=== PATIENT | female | born 1970 | race Caucasian/White ===

== ENCOUNTER 2022-11-14 07:37 | Day surgery (SDC) | payer OTHER, SELFPAY ==
[2022-10-25 08:53] VITALS: BMI 26.6
[2022-11-04 08:21] VITALS: BMI 25.9
--- NOTE | 2022-11-14 07:02 | WPDANESEPPF ---
Anes - Initial Pre Proc Eval Procedure: Operation Date: 11/14/22 09:30 Proposed Procedures p Esophagogastroduodenoscopy - Júnior Mar MD s Diagnostic Colonoscopy - Júnior Mar MD Date/Time: 11/14/22 07:02 Surgeon: Júnior Mar MD Pre Op Diagnosis: Nausea,Gerd,Diarrhea,Other Specified Symptoms and Patient Data Age: 52 Gender: F Height: 1.7 m Weight: 75 kg Allergies Allergy/AdvReac Type Severity Reaction Status Date / Time No Known Allergies Allergy Verified 11/14/22 08:14 Home Medications Medication Instructions Recorded Confirmed Type duloxetine 30 mg capsule,delayed 30 mg PO DAILY 08/29/19 11/14/22 History release fingolimod 0.5 mg capsule (Gilenya) 0.5 mg PO DAILY 08/29/19 11/14/22 History solifenacin 5 mg tablet 5 mg PO DAILY 07/23/20 11/14/22 History temazepam 7.5 mg capsule (Restoril) 7.5 mg PO QHS 08/03/21 11/14/22 History omeprazole 20 mg capsule,delayed 20 mg PO .daily #30 caps 11/14/22 11/14/22 Rx release Patient hx anesthesia problems: none Family hx anesthesia problems: none Results Review: All pre-operative results and documents have been reviewed as part of the pre-operative evaluation. [facility] Past Medical History Medical History (Updated 10/20/22 @ 09:24 by Winnie Barrios APRN) Acute diarrhea Depression GERD (gastroesophageal reflux disease) Multiple sclerosis Nausea Tenesmus Weight loss Surgical History Surgical History [place] teeth removed Family History Family History Grandparent Cerebrovascular accident Mother Acute myocardial infarction Father Family history of suicide Alcoholism Grandparent Family history of lung cancer Family history of heart disease in male family member before age 55 Diabetes mellitus Cerebrovascular accident Mother Family history of heart disease in male family member before age 55 Heart disease Other Breast cancer Family history of malignant neoplasm of breast Social History Social History Smoking status: Former smoker Tobacco type: cigarettes Second hand tobacco smoke exposure: No Smoking end date: 03/27/99 Alcohol intake: current Alcohol use details: occassional Substance use: never Substance use type: does not use Lack of Transportation: No Lack of Food: Never True Current Housing: I Have Housing Concerned About Future Housing: No Difficulty Paying Gas/Electric Bills: No Difficulty Paying for Meds: No Currently Unemployed: No Education: Bachelor's Degree Difficulty w/ Childcare or Family Care: No Living arrangements: with family Gender identity (if verbalized by the patient): Female Sexual Orientation (if Verbalized by the Patient): Straight or Heterosexual Spiritual care concerns: No Agree to blood products: Yes Anes - Eval Final PreProcedure Day of Procedure 11/14/22 07:02 Patient weight: overweight Heart: regular rate and rhythm Lungs: clear to auscultation Airway: Mallampati scale class II Neurological: alert and oriented Last oral intake: >/= 8 hours ASA classification: II Emergent: no Anesthetic plan: proceed Anesthesia type and monitoring: general GIVS and standard monitoring Results Review: All pre-operative results and documents have been reviewed as part of the pre-operative evaluation. Informed Consent: The patient's anesthetic plan and its attendant risks and benefits were discussed with the patient/family/POA. Questions were solicited and answers provided to the satisfaction of the patient/family/POA.
[2022-11-14 08:16] VITALS: BP 125/84; PULSE 85; RESP 18; TEMP 36.4; O2SAT 100
[2022-11-14] MEDS: LACTATED RINGERS 1,000 ML 150 ML IV CONT (08:25)
--- NOTE | 2022-11-14 09:41 | WPDHPUPDATE1 ---
History and Physical Update Update Date/Time: 11/14/22 09:41 History and Physical has been reviewed, including an updated exam of the patient. There are NO changes in the patient's condition. Risks, benefits, and alternatives have been discussed and questions answered. Patient agrees to proceed with procedure.
[2022-11-14 10:18] VITALS: BP 110/73; PULSE 70; RESP 16; O2SAT 99
[2022-11-14 10:28] VITALS: BP 115/74; PULSE 77; RESP 20; O2SAT 100
[2022-11-14 10:38] VITALS: BP 117/82; PULSE 63; RESP 20; O2SAT 100
--- NOTE | 2022-11-14 12:35 | WPDANESPN ---
Anes - Prog Note Post-Op Date/Time: 11/14/22 12:35 Cardiovascular status: normal Respiratory status: normal Airway patency: baseline Mental status: baseline Post-Op hydration status: normal Vital Signs: Last Vital Signs Temp 36.4 C 11/14/22 08:16 Pulse 63 11/14/22 10:38 Resp 20 11/14/22 10:38 BP 117/82 11/14/22 10:38 Pulse Ox 100 11/14/22 10:38 O2 Del Method Room Air 11/14/22 10:38 Pain Score (VAS): 0 I/O: Intake & Output 11/13/22 11/14/22 11/14/22 23:59 07:59 15:59 Intake Total 800 Balance 800 Post-procedural complaints: none Patient Feedback: Patient satisfied with anesthetic care. Other Findings: Patient vital signs back to baseline. Patient denies nausea and vomiting. Patient's pain under control. Patient OK for discharge.
== END 2022-11-14 10:57 | disposition home or self-care (01) ==
PROVIDERS: PCP Family Medicine; Visit Provider Internal Medicine Gastroenterology
PROC: 0DJ08ZZ Inspection of Upper Intestinal Tract, Via Natural or Artificial Opening Endoscopic (ICD-10-PCS; CPT 43235; principal; 2022-11-14 09:30)
PROC: 0DJD8ZZ Inspection of Lower Intestinal Tract, Via Natural or Artificial Opening Endoscopic (ICD-10-PCS; CPT 45378; 2022-11-14 09:30)
DX: Z12.11 Encounter for screening for malignant neoplasm of colon (principal); D12.2 Benign neoplasm of ascending colon; D12.3 Benign neoplasm of transverse colon; R19.7 Diarrhea, unspecified; K64.8 Other hemorrhoids; K29.70 Gastritis, unspecified, without bleeding; R07.89 Other chest pain
CPT/HCPCS: 45385; 45380; 43239

== ENCOUNTER 2022-11-14 08:00 | Outpatient (NON) | payer OTHER, SELFPAY | END 2022-11-14 08:01 | disposition home or self-care (01) | LOC: ANHLAB 11-15 10:16 | PROVIDERS: PCP Family Medicine; Visit Provider Internal Medicine Gastroenterology | DX: K21.9 Gastro-esophageal reflux disease without esophagitis (principal) | CPT/HCPCS: 88305 ==

== ENCOUNTER → 2023-01-23 09:56 | Outpatient (CLI) | payer OTHER, SELFPAY ==
--- NOTE | ~2023-01-23 | MR_ITS ---
EXAMINATION: MR brain/brain stem wo con DATE: 01/23/2023 11:06 INDICATION: Multiple sclerosis. TECHNIQUE: Magnetic resonance imaging (MRI) of the brain and brainstem was performed without intraven ous contrast. COMPARISON: Brain MRI 12/10/2007 FINDINGS: There are greater than 40 total lesions of increased T2-weighted signal intensity in the br ain. Of these lesions, multiple are periventricular, multiple are juxtacortical, and multiple are inf ratentorial. There is no acute ischemic infarct or intracranial hemorrhage. The ventricles are normal in size. The orbits are normal. The paranasal sinuses are clear. The mastoid air cells are normal. IMPRESSION: 1. Brain lesions with worsening from 12/10/2007, consistent with multiple sclerosis. Reviewed, dictated and finalized at location E. IMPRESSION: 1. Brain lesions with worsening from 12/10/2007, consistent with multiple sclero sis.
--- NOTE | ~2023-01-23 | MR_ITS ---
EXAMINATION: MR cervical spine wo con DATE: 01/23/2023 11:06 INDICATION: Multiple sclerosis. TECHNIQUE: Magnetic resonance imaging (MRI) of the cervical spine was performed without intravenous c ontrast. COMPARISON: None FINDINGS: There is hypolordosis of lower cervical spine. Vertebral body heights are normal. There is moderately decreased disc height at C5-C6 and mildly decreased disc height at C6-C7. There are approx imately 4 ill-defined lesions of increased T2-weighted signal intensity in the spinal cord. The follo wing disc levels are specifically discussed: C2-C3: The disc does not extend beyond the endplate margin. There is no uncovertebral joint osteoarth ritis. There is mild bilateral facet joint osteoarthritis. There is mild left neural foraminal stenos is. There is no central canal stenosis. C3-C4: The disc does not extend beyond the endplate margin. There is mild left uncovertebral joint os teoarthritis. There is mild bilateral facet joint osteoarthritis. There is no neural foraminal stenos is. There is no central canal stenosis. C4-C5: The disc does not extend beyond the endplate margin. There is mild bilateral uncovertebral philipp nt osteoarthritis. There is mild bilateral facet joint osteoarthritis. There is no neural foraminal s tenosis. There is no central canal stenosis. C5-C6: The disc is bulging. There is severe bilateral uncovertebral joint osteoarthritis. There is mi ld right facet joint osteoarthritis. There is moderate bilateral neural foraminal stenosis. There is mild central canal stenosis. C6-C7: The disc is bulging. There is mild bilateral uncovertebral joint osteoarthritis. There is mild right facet joint osteoarthritis. There is mild bilateral neural foraminal stenosis. There is no joceline tral canal stenosis. C7-T1: The disc does not extend beyond the endplate margin. There is no uncovertebral joint osteoarth ritis. There is moderate right and mild left facet joint osteoarthritis. There is no neural foraminal stenosis. There is no central canal stenosis. IMPRESSION: 1. Spinal cord lesions, consistent with multiple sclerosis. 2. Moderate cervical spondylosis. Reviewed, dictated and finalized at location E.
== END ==
PROVIDERS: PCP Psychiatry & Neurology Neurology; Visit Provider Psychiatry & Neurology Neurology
DX: G35 Multiple sclerosis (principal); M47.892 Other spondylosis, cervical region
CPT/HCPCS: 70551; 72141

== ENCOUNTER 2023-06-30 11:15 | Outpatient (CLI) | payer OTHER, SELFPAY ==
--- NOTE | ~2023-06-30 | US_ITS ---
EXAMINATION: US pelvic complete w TV DATE: 06/30/2023 11:56 INDICATION: Postmenopausal bleeding. TECHNIQUE: Multiple transabdominal and transvaginal sonographic images of the pelvis were obtained. COMPARISON: None. FINDINGS: TRANSABDOMINAL ULTRASOUND: The uterus measures 8.1 x 3.3 x 3.8 cm. There is no free fluid in the pelvis. TRANSVAGINAL ULTRASOUND: The endometrial complex measures 7 mm in thickness. The right ovary is not visualized. The left ovary measures 3.3 x 1.6 x 1.8 cm. IMPRESSION: 1. Thickened endometrial complex. The differential diagnosis includes endometrial hyperplasia, polyp, and carcinoma. Biopsy is recommended. Reviewed, dictated and finalized at location A. IMPRESSION: 1. Thickened endometrial complex. The differential diagnosis includes endometri al hyperplasia, polyp, and carcinoma. Biopsy is recommended.
== END 2023-06-30 11:16 ==
PROVIDERS: Visit Provider Obstetrics & Gynecology
DX: N95.0 Postmenopausal bleeding (principal)
CPT/HCPCS: 76830; 76856

== ENCOUNTER 2023-08-16 01:00 | Day surgery (SDC) | payer OTHER, SELFPAY ==
[2023-08-09 09:35] VITALS: BMI 22.4
--- NOTE | 2023-08-09 09:36 | PC.NURSE ---
Report to the Outpatient Waiting Room, entrance under the green pavilion located off [facility], at time _0915_ on date _[id number]_. Planned Procedure Time: _1115_. Time changes happen often and if your time is changed the preop area will call you the afternoon before. - You and your visitor will be asked to self-screen and do not enter if you have any COVID symptoms. - A mask is optional within the hospital at this time. Patients may have clear liquids (water, carbonated beverages, clear teas, apple juice) until 3 hours prior to surgery with a maximum of 20 ounces. - No food from midnight until time of surgery Take the following medications with a SIP of water the morning of surgery: ___Fingolimod DO NOT STOP ANY OF YOUR OTHER PRESCRIPTION MEDICATIONS PRIOR TO SURGERY ?EXCEPT THE FOLLOWING Medications to discontinue per physician Multivitamin and vitamin D3 Date to take last [id number]__[id number] Please no make-up, nail swedish, hairspray, perfume, deodorant, or body powder the day of surgery. No jewelry (including any body piercings) or valuables the day of surgery, leave them at home. Please take a shower or bath the night before, or the morning of, surgery with an antibacterial soap. Wear comfortable, loose fitting clothing. - Jewelry must be removed prior to entering the operating room. Rings and piercings that are not removed may be cut off. - The hospital will not accept responsibility for valuables. - Please leave all valuables, including medications, at home the day of surgery. If you are going home after surgery, a licensed limb driver must drive you home. - NO public transportation without another adult if you receive anesthesia. - We recommend that an adult stay with you for 24 hours following discharge. - We also recommend that you do not drive, make important decision, drink alcoholic beverages, or take any drugs that were not prescribed by your health care provider for at least 24 hours after your discharge time. Follow any additional instructions given to you from your surgeon. If you or anyone in your household have experienced Covid symptoms in the past week, please notify your surgeon or the nurse liaison at the phone number below for possible testing. Telephone instructions given to _Estela__and asked if any additional questions and then verbalized understanding. Patient advised to call surgeon office or pre surgery nurse liaison [phone] if any additional questions.
--- NOTE | 2023-08-16 08:06 | PM.IMHP ---
H&P: HPI History of Present Illness Date/Time: 08/16/23 08:06 Chief Complaint: Postmenopausal bleeding Narrative: 53 y/o postmenopausal with history of 2-3 day menstrual period. Ultrasound showed thickened endometrial stripe of 7mm. She was recommended for endometrial sampling and opted for dilation and curettage and hysteroscopy. She did have abnormal pap and colposcopy biopsy showed CIN1 and she was recommended for pap in a year. Review of Systems Review of Systems: All systems reviewed & are unremarkable except as noted in HPI and below Cardiovascular: Cardiovascular: Reports no additional cardiovascular complaints, Denies chest pain and Denies dyspnea Respiratory: Respiratory: Reports no additional respiratory complaints and Denies dyspnea Gastrointestinal: Gastrointestinal: Reports abdominal pain, Denies change in bowel habits, Denies diarrhea, Denies nausea and Denies vomiting Integumentary/Breasts: Skin/Breast: Reports system reviewed and no additional complaints, except as docu Neurologic: Reports system reviewed and no additional complaints, except as documented PMFSH Past Medical History Medical History Acute diarrhea Depression GERD (gastroesophageal reflux disease) LGSIL (low grade squamous intraepithelial dysplasia) Multiple sclerosis Nausea Tenesmus Weight loss Surgical History Surgical History [place] teeth removed Family History Family History Grandparent Cerebrovascular accident Mother Acute myocardial infarction Father Family history of suicide Alcoholism Grandparent Family history of lung cancer Family history of heart disease in male family member before age 55 Diabetes mellitus Cerebrovascular accident Mother Family history of heart disease in male family member before age 55 Heart disease Other Breast cancer Family history of malignant neoplasm of breast Social History Social History Smoking packs per day: 0.5 Smoking cigarettes per day: 10.0 Years smoked: 6 Smoking pack-years: 3.00 Smoking status: Former smoker Tobacco type: cigarettes Second hand tobacco smoke exposure: No Smoking end date: 08/09/19 Alcohol intake: current Drinks per week: 6 Alcohol use details: occassional Substance use: never Substance use type: does not use Lack of Transportation: No Lack of Food: Never True Current Housing: I Have Housing Concerned About Future Housing: No Difficulty Paying Gas/Electric Bills: No Difficulty Paying for Meds: No Currently Unemployed: No Education: Bachelor's Degree Difficulty w/ Childcare or Family Care: No Living arrangements: with family Gender identity (if verbalized by the patient): Female Sexual Orientation (if Verbalized by the Patient): Straight or Heterosexual Spiritual care concerns: No Agree to blood products: Yes Meds Home Medications and Allergies Home Medications Medication Instructions Recorded Confirmed Type duloxetine 30 mg capsule,delayed 30 mg PO DAILY 08/29/19 08/09/23 History release fingolimod 0.5 mg capsule (Gilenya) 0.5 mg PO DAILY 08/29/19 08/09/23 History solifenacin 5 mg tablet 5 mg PO DAILY 07/23/20 08/09/23 History temazepam 7.5 mg capsule (Restoril) 7.5 mg PO QHS PRN Insomnia 08/03/21 08/09/23 History cholecalciferol (vitamin D3) 125 125 mcg PO DAILY 08/09/23 08/09/23 History mcg (5,000 unit) tablet (Vitamin D3) multivitamin 1 tablet PO DAILY 08/09/23 08/09/23 History Allergies Allergy/AdvReac Type Severity Reaction Status Date / Time No Known Allergies Allergy Verified 08/09/23 09:27 Exam Const: Orientation/consciousness: oriented to person and oriented to place HENMT: Head: normal to inspection Eyes: General: appearanc
[2023-08-16 09:40] VITALS: BP 114/83; PULSE 82; RESP 14; TEMP 36.6; O2SAT 100
[2023-08-16] MEDS: LACTATED RINGERS 1,000 ML 30 ML IV CONT (09:40)
[2023-08-16] MEDS: ACETAMINOPHEN 500 MG TABLET 1000 MG PO (09:40)
--- NOTE | 2023-08-16 09:46 | WPDHPUPDATE1 ---
History and Physical Update Update Date/Time: 08/16/23 09:46 History and Physical has been reviewed, including an updated exam of the patient. There are NO changes in the patient's condition. Risks, benefits, and alternatives have been discussed and questions answered. Patient agrees to proceed with procedure.
--- NOTE | 2023-08-16 10:13 | WPDANESEPPF ---
Anes - Initial Pre Proc Eval Procedure: Operation Date: 08/16/23 10:45 Proposed Procedures p Hysteroscopy, Dilation and Curettage with Removal of Any Endometrial Lesions if Necessary - Akshat Monroe MD Date/Time: 08/16/23 10:13 Surgeon: Akshat Monroe MD Pre Op Diagnosis: post menopausal bleeding Patient Data Age: 53 Gender: F Height: 1.7 m Weight: 64.5 kg Last Vital Signs Temp 97.8 F 08/16/23 09:40 Pulse 82 08/16/23 09:40 Resp 14 08/16/23 09:40 BP 114/83 08/16/23 09:40 Pulse Ox 100 08/16/23 09:40 O2 Del Method Room Air 08/16/23 09:40 Allergies Allergy/AdvReac Type Severity Reaction Status Date / Time No Known Allergies Allergy Verified 08/16/23 10:14 Home Medications Medication Instructions Recorded Confirmed Type duloxetine 30 mg capsule,delayed 30 mg PO DAILY 08/29/19 08/09/23 History release fingolimod 0.5 mg capsule (Gilenya) 0.5 mg PO DAILY 08/29/19 08/16/23 History solifenacin 5 mg tablet 5 mg PO DAILY 07/23/20 08/09/23 History temazepam 7.5 mg capsule (Restoril) 7.5 mg PO QHS PRN Insomnia 08/03/21 08/09/23 History cholecalciferol (vitamin D3) 125 125 mcg PO DAILY 08/09/23 08/09/23 History mcg (5,000 unit) tablet (Vitamin D3) multivitamin 1 tablet PO DAILY 08/09/23 08/09/23 History Patient hx anesthesia problems: none Family hx anesthesia problems: none Results Review: All pre-operative results and documents have been reviewed as part of the pre-operative evaluation. [facility] Past Medical History Medical History Acute diarrhea Depression GERD (gastroesophageal reflux disease) LGSIL (low grade squamous intraepithelial dysplasia) Multiple sclerosis Nausea Tenesmus Weight loss Surgical History Surgical History [place] teeth removed Family History Family History Grandparent Cerebrovascular accident Mother Acute myocardial infarction Father Family history of suicide Alcoholism Grandparent Family history of lung cancer Family history of heart disease in male family member before age 55 Diabetes mellitus Cerebrovascular accident Mother Family history of heart disease in male family member before age 55 Heart disease Other Breast cancer Family history of malignant neoplasm of breast Social History Social History Smoking packs per day: 0.5 Smoking cigarettes per day: 10.0 Years smoked: 6 Smoking pack-years: 3.00 Smoking status: Former smoker Tobacco type: cigarettes Second hand tobacco smoke exposure: No Smoking end date: 08/09/19 Alcohol intake: current Drinks per week: 6 Alcohol use details: occassional Substance use: never Substance use type: does not use Lack of Transportation: No Lack of Food: Never True Current Housing: I Have Housing Concerned About Future Housing: No Difficulty Paying Gas/Electric Bills: No Difficulty Paying for Meds: No Currently Unemployed: No Education: Bachelor's Degree Difficulty w/ Childcare or Family Care: No Living arrangements: with family Gender identity (if verbalized by the patient): Female Sexual Orientation (if Verbalized by the Patient): Straight or Heterosexual Spiritual care concerns: No Agree to blood products: Yes Anes - Eval Final PreProcedure Day of Procedure 08/16/23 10:13 Patient weight: normal Heart: regular rate and rhythm Lungs: clear to auscultation Airway: Mallampati scale and special considerations (Overbite noted. ) Neurological: alert and oriented Last oral intake: >/= 8 hours ASA classification: II Emergent: no Anesthetic plan: proceed Anesthesia type and monitoring: general GIVS and standard monitoring Results Review: All pre-operative results and documen
[2023-08-16] MEDS: ceFAZolin 2 GM/D5W 50 ML 2 GM/50 ML BAG IVPB (10:19)
[2023-08-16] MEDS: LIDOCAINE HCL 1% LOCAL INJ 10 ML VIAL INFILTRATE (10:32)
--- NOTE | 2023-08-16 10:44 | P.OP_ITS ---
Procedure Note - Detailed Date of Procedure 08/16/23 Pre-op Diagnosis post menopausal bleeding Post-op Diagnosis Same (Endometrial polyp) Procedure Performed Hysteroscopy and dilation and curettage and removal of endometrial lesion with A brionna instrument. Surgeon Akshat Monroe MD Anesthesia MAC and Local Indications Postmenopausal bleeding, thickened endometrial stripe. Findings Small polyp structure in cavity, the rest of cavity atrophic. Description of Procedure ?After informed consent was obtained patient was taken to the operating room and adequate IV sedation was administered. Attention was turned to the vagina.? Speculum was inserted.? Single-tooth tenaculum placed on the anterior lip of the cervix. 10cc of 1% lidocaine injected at cervicovaginal interface. The uterus was sounded to? 6 cm. The cervix was dilated to a 4 peace dilator. The hysteroscope was inserted into the cavity. There was a small endometrial polyp in the lower uterine cavity. A stone was passed and then hysteroscope was inserted again and a residual of polyp remained. The aveta was used and the rest of the polyp structure was removed. The rest of the cavity was atrophic appearing. Minimal tissue obtained with curettage. The hysteroscope was removed. The hysteroscope was removed the single-tooth tenaculum was removed hemostasis was noted at the tenaculum site. Sponge count correct. The patient taken to recovery in stable condition. Estimated Blood Loss 5 Drains No Packing No Pathology Yes (Shavings and scant curettage) Complications No immediate complications Condition Stable Disposition Same day [facility] Billing Surgery - Charge Forward: Surgery Billing
[2023-08-16 10:49] VITALS: BP 101/58; PULSE 67; RESP 13; O2SAT 97
[2023-08-16 11:20] VITALS: BP 102/59; PULSE 67; RESP 16; O2SAT 97
[2023-08-16 11:50] VITALS: BP 129/94; PULSE 68; RESP 16
== END 2023-08-16 11:53 | disposition home or self-care (01) ==
PROVIDERS: Visit Provider Obstetrics & Gynecology
PROC: 0U5B8ZZ Destruction of Endometrium, Via Natural or Artificial Opening Endoscopic (ICD-10-PCS; CPT 58563; principal; 2023-08-16 10:45)
DX: N95.0 Postmenopausal bleeding (principal); G35 Multiple sclerosis; F32.A Depression, unspecified; Z87.891 Personal history of nicotine dependence
CPT/HCPCS: 58558; 88305; A9270; J0690; J2250; J2704; J3010; J7120

== ENCOUNTER 2023-11-30 09:39 | Emergency (ER) | payer OTHER, SELFPAY ==
--- NOTE | 2023-11-30 09:57 | ED.ABDPAIN ---
HPI - Abdominal Pain General Chief Complaint: Urogenital-Female Stated Complaint: Uti Symptoms Time Seen by Provider: 11/30/23 09:58 Source: patient, RN notes reviewed and old records reviewed Mode of arrival: ambulatory Limitations: no limitations History of Present Illness HPI narrative: patient presents with complaints of urinary frequency and burning that began yesterday. She denies any fever, chills, sweats. She does report some bilateral back pain, no abdominal pain. No nausea or vomiting. Has been taking azo for her symptoms with good relief Related Data Home Medications Medication Instructions Recorded Confirmed duloxetine 30 mg capsule,delayed 30 mg PO DAILY 08/29/19 11/30/23 release fingolimod 0.5 mg capsule (Gilenya) 0.5 mg PO DAILY 08/29/19 11/30/23 solifenacin 5 mg tablet 5 mg PO DAILY 07/23/20 11/30/23 temazepam 7.5 mg capsule (Restoril) 7.5 mg PO QHS PRN Insomnia 08/03/21 11/30/23 cholecalciferol (vitamin D3) 125 125 mcg PO DAILY 08/09/23 11/30/23 mcg (5,000 unit) tablet (Vitamin D3) multivitamin 1 tablet PO DAILY 08/09/23 11/30/23 Allergies Allergy/AdvReac Type Severity Reaction Status Date / Time No Known Allergies Allergy Verified 11/30/23 09:55 Review of Systems Review of Systems: All systems reviewed & are unremarkable except as noted in HPI and below Constitutional: Constitutional: Reports as per HPI, Reports no additional constitutional complaints, Denies body ache(s), Denies chills and Denies fever(s) ENT: Reports system reviewed and no additional complaints, except as documented Cardiovascular: Cardiovascular: Reports no additional cardiovascular complaints Respiratory: Respiratory: Reports no additional respiratory complaints Gastrointestinal: Gastrointestinal: Reports as per HPI and Reports no additional gastrointestinal complaints Genitourinary: Genitourinary: Reports no additional female genitourinary complaints, Reports as per HPI, Reports dysuria and Reports urinary urgency PMFSH Past Medical History Medical History Acute diarrhea Depression GERD (gastroesophageal reflux disease) LGSIL (low grade squamous intraepithelial dysplasia) Multiple sclerosis Nausea Tenesmus Weight loss Surgical History Surgical History [place] teeth removed Family History Family History Grandparent Cerebrovascular accident Mother Acute myocardial infarction Father Family history of suicide Alcoholism Grandparent Family history of lung cancer Family history of heart disease in male family member before age 55 Diabetes mellitus Cerebrovascular accident Mother Family history of heart disease in male family member before age 55 Heart disease Other Breast cancer Family history of malignant neoplasm of breast Social History Social History Smoking packs per day: 0.5 Smoking cigarettes per day: 10.0 Years smoked: 6 Smoking pack-years: 3.00 Smoking status: Former smoker Tobacco type: cigarettes Second hand tobacco smoke exposure: No Smoking end date: 08/09/19 Alcohol intake: current Drinks per week: 6 Alcohol use details: occassional Substance use: never Substance use type: does not use Lack of Transportation: No Lack of Food: Never True Current Housing: I Have Housing Concerned About Future Housing: No Difficulty Paying Gas/Electric Bills: No Difficulty Paying for Meds: No Currently Unemployed: No Education: Bachelor's Degree Difficulty w/ Childcare or Family Care: No Living arrangements: with family Gender identity (if verbalized by the patient): Female Sexual Orientation (if Verbalized by the Patient): Straight or Heterosexual Spiritual care concerns: No Agree to blood products: Yes Com
[2023-11-30 09:59] VITALS: BP 126/89; PULSE 70; RESP 16; TEMP 36.2; O2SAT 100
[2023-11-30 10:07] LABS: EDUAAPPEAR Cloudy; EDUABILI Negative; EDUABLOOD Trace; EDUACOLOR1 Orange; EDUAGLUCOSE Trace; EDUAKETONE Negative; EDUALEUKO 1+; EDUANITRATE Positive; EDUAPH 6.5; EDUAPROTEIN 2+; EDUASPGRAVITY 1.025
== END 2023-11-30 10:25 | disposition home or self-care (01) ==
PROVIDERS: Emergency Provider Nurse Practitioner Family
DX: N39.0 Urinary tract infection, site not specified (principal); B96.89 Other specified bacterial agents as the cause of diseases classified elsewhere; G35 Multiple sclerosis; K21.9 Gastro-esophageal reflux disease without esophagitis; Z87.891 Personal history of nicotine dependence
CPT/HCPCS: 81003; 87077; 87086; 87088; 87186; 99213; G0463

== ENCOUNTER 2024-04-03 09:07 | Emergency (ER) | payer OTHER, SELFPAY ==
[2024-04-03 09:17] VITALS: BP 125/86; PULSE 86; RESP 16; TEMP 36.6; O2SAT 100
--- NOTE | 2024-04-03 09:21 | ED_ITS ---
HPI - URI/Sore Throat General Chief Complaint: Upper Respiratory Infection Stated Complaint: COLD SYMPTOMS Time Seen by Provider: 04/03/24 09:30 Source: patient and RN notes reviewed Mode of arrival: ambulatory Limitations: no limitations History of Present Illness HPI Narrative: 54-year-old female presents with concern for 6 day history of nasal congestion, sinus pressure, productive cough. She has been taking cold medicine without much relief. She denies fever, aches, chills, sweats. She takes an immunosuppressant MD elicited complaint: cough and nasal congestion Related Data Home Medications ?Medication ?Instructions ?Recorded ?Confirmed ?Last Taken ?Type duloxetine 30 mg capsule,delayed 30 mg PO DAILY 08/29/19 04/03/24 11/13/22 History release fingolimod 0.5 mg capsule (Gilenya) 0.5 mg PO DAILY 08/29/19 04/03/24 08/16/23 History solifenacin 5 mg tablet 5 mg PO DAILY 07/23/20 04/03/24 11/13/22 History temazepam 7.5 mg capsule (Restoril) 7.5 mg PO QHS PRN Insomnia 08/03/21 04/03/24 11/13/22 History cholecalciferol (vitamin D3) 125 125 mcg PO DAILY 08/09/23 04/03/24 Unknown History mcg (5,000 unit) tablet (Vitamin D3) multivitamin 1 tablet PO DAILY 08/09/23 04/03/24 Unknown History Allergies Allergy/AdvReac Type Severity Reaction Status Date / Time No Known Allergies Allergy Verified 04/03/24 09:20 Review of Systems Review of Systems: CONSTITUTIONAL: Denies malaise, chills, sweats, or fever. EYES: Denies visual changes, redness, or discharge. ENT: Reports rhinorrhea, congestion, sinus pain, otalgia and sore throat. CARDIOVASCULAR: Denies chest pain, palpitations, or edema. RESPIRATORY: Reports cough. Denies dyspnea. GASTROINTESTINAL: Denies abdominal pain, nausea, vomiting, diarrhea SKIN: Denies rash or itching. MUSCULOSKELETAL: Denies myalgia. NEUROLOGIC: Denies headache. All systems reviewed & are unremarkable except as noted in HPI and below PMFSH Past Medical History Medical History Acute diarrhea Depression GERD (gastroesophageal reflux disease) LGSIL (low grade squamous intraepithelial dysplasia) Multiple sclerosis Nausea Tenesmus Weight loss Surgical History Surgical History [place] teeth removed Family History Family History Grandparent Cerebrovascular accident Mother Acute myocardial infarction Father Family history of suicide Alcoholism Grandparent Family history of lung cancer Family history of heart disease in male family member before age 55 Diabetes mellitus Cerebrovascular accident Mother Family history of heart disease in male family member before age 55 Heart disease Other Breast cancer Family history of malignant neoplasm of breast Social History Social History Smoking packs per day: 0.5 Smoking cigarettes per day: 10.0 Years smoked: 6 Smoking pack-years: 3.00 Smoking status: Former smoker Tobacco type: cigarettes Second hand tobacco smoke exposure: No Smoking end date: 08/09/19 Alcohol intake: current Drinks per week: 6 Alcohol use details: occassional Substance use: never Substance use type: does not use Lack of Transportation: No Lack of Food: Never True Current Housing: I Have Housing Concerned About Future Housing: No Difficulty Paying Gas/Electric Bills: No Difficulty Paying for Meds: No Currently Unemployed: No Education: Bachelor's Degree Difficulty w/ Childcare or Family Care: No Living arrangements: with family Gender identity (if verbalized by the patient): Female Sexual Orientation (if Verbalized by the Patient): Straight or Heterosexual Spiritual care concerns: No Agree to blood products: Yes Comments At time of signature, agree with nursing past medical, surgical, social and family history. There is no relevant family history pertinent to the presenting complaint Exam Narrative: GENERAL: Well-appearing, well-nourished, and in no acute distress. HEAD: Normocephalic EYES: PERRLA, conjunctivae clear ENT: Nares clear, turbinates edematous and erythematous, clear discharge. Mucous membranes moist. TM pearly moyer with dull light reflex bilaterally; no tragal tenderness. Oropharynx not erythematous without lesions. Tonsils not enlarged and without exudate, no drooling, no hoarseness, no trismus, uvula midline. NECK: Supple. No lymphadenopathy CHEST: Clear to auscultation, breath sounds equal. No wheezing, rhonchi, rales, or stridor. No respiratory distress, speaks in full sentences. HEART: Regular rate and rhythm. No murmur heard. SKIN: Warm, dry, no rash. NEURO: Alert and oriented x3. PSYCH: Normal mood and affect Course Course Emergency Course: Patient is aware of diagnosis, understands and agrees to treatment plan. Anticipatory guidance given. Patient agrees to follow-up as directed and is aware of reasons to seek care at the emergency department. Portions of this record may have been created with voice recognition software Level of Care: Express Care Visit Vital Signs Vital signs: Vital Signs Temperature 97.8 F 04/03/24 09:17 Pulse Rate 86 04/03/24 09:17 Respiratory Rate 16 04/03/24 09:17 Blood Pressure 125/86 04/03/24 09:17 Pulse Oximetry 100 04/03/24 09:17 Temperature 97.8 F 04/03/24 09:17 Pulse Rate 86 04/03/24 09:17 Respiratory Rate 16 04/03/24 09:17 Blood Pressure 125/86 04/03/24 09:17 Pulse Oximetry 100 04/03/24 09:17 Reviewed. MDM - URI/Sore Throat MDM Narrative Medical decision making narrative: Differential diagnosis considered: [place] virus, strep pharyngitis, allergic rhinitis, upper respiratory tract infection, sinusitis, rhinosinusitis, nasopha ryngitis. viral pharyngitis, otitis media, otitis externa, pneumonia, bronchitis, viral cough syndrome, viral syndrome, and influenza. Exam findings show no acute concerns or changes; patient is non-toxic appearing and is in no distress. Patient is appropriate for outpatient treatment and follow-up. Lab Data Attestation: I reviewed the patient's lab results. Critical Care Time Critical Care Time Critical Care Time: No Discharge Plan Discharge Clinical Impression: Sinobronchitis Patient Disposition: Home, Self-Care Condition: Stable Instructions: Sinusitis (ED) Additional Instructions: Symptomatic treatment of a sinus infection aims to relieve symptoms. These treatments do not shorten the duration of illness. Nonprescription pain medications, such as acetaminophen (eg, Tylenol) or ibuprofen (eg, Motrin, Advil), are recommended for pain. Flushing the nose and sinuses with a saline solution several times per day has been proven to decrease pain associated with congestion and shorten the duration of symptoms. Nasal steroids (such as Flonase, 2 sprays in each nostril daily) can help to reduce swelling inside the nose, usually within two to three days. These drugs have few side effects and relieve symptoms in most people. Oral decongestants (pseudoephedrine and phenylephrine) may be helpful if you have associated symptoms of ear pain or fullness. Nasal decongestant sprays, including oxymetazoline (Afrin) and phenylephrine (Grant-Synephrine), can be used to temporarily treat congestion. However, these sprays should not be used for more than two to three days due to the risk of rebound congestion (when the nose becomes congested constantly unless the medication is used repeatedly), possible addiction, and long-term consequences of frequent use, including persistent nasal dryness and crusting, which is very difficult to treat once it has developed. Medications to thin secretions (such as guaifenesin) may help to clear mucus. Please follow-up with your primary care doctor in the next 1-2 days. If you cannot follow-up with your primary care doctor please go to the ED for any urgent issues. If you have any worsening of symptoms or any other concerns please go to the ED immediately. Patient Language: Ukrainian Prescriptions: New pseudoephedrine HCl [12 Hour Decongestant] 120 mg tablet extended release 120 mg PO Q12H PRN (Reason: nasal congestion) Qty: 20 0RF doxycycline monohydrate 100 mg tablet 100 mg PO BID 7 Days Qty: 14 0RF No Action duloxetine 30 mg capsule,delayed release(DR/EC) 30 mg PO DAILY Gilenya 0.5 mg capsule 0.5 mg PO DAILY solifenacin 5 mg tablet 5 mg PO DAILY temazepam [Restoril] 7.5 mg capsule 7.5 mg PO QHS PRN (Reason: Insomnia) multivitamin Tablet 1 tablet PO DAILY cholecalciferol (vitamin D3) [Vitamin D3] 125 mcg (5,000 unit) Tablet 125 mcg PO DAILY Follow-up/Referrals: Sumit,Manda [Other] Stand Alone Forms: Work/School Release IP Time of Disposition: 09:33
== END 2024-04-03 09:41 | disposition home or self-care (01) ==
PROVIDERS: Emergency Provider Nurse Practitioner
DX: J32.9 Chronic sinusitis, unspecified (principal); J40 Bronchitis, not specified as acute or chronic; Z79.899 Other long term (current) drug therapy; Z87.891 Personal history of nicotine dependence
CPT/HCPCS: 99213; G0463

== ENCOUNTER 2024-06-25 08:44 | Emergency (ER) | payer OTHER, SELFPAY ==
[2024-06-25 08:54] VITALS: BP 136/85; PULSE 78; RESP 16; TEMP 36.1; O2SAT 100
[2024-06-25 09:31] LABS: EDUAAPPEAR Clots; EDUABILI Negative (Negative); EDUABLOOD 3+ (Negative); EDUACOLOR1 Yellow; EDUAGLUCOSE Negative (Negative); EDUAKETONE Negative (Negative); EDUALEUKO 2+ (Negative); EDUANITRATE Positive (Negative); EDUAPROTEIN 3+ (Negative); EDUASPGRAVITY 1.025; EDUAUROBILI 0.2
--- NOTE | 2024-06-25 09:35 | ED.FEMALEGU ---
HPI - Female Genitourinary General Chief complaint: Urogenital-Female Stated complaint: UTI SYMPTOMS Time Seen by Provider: 06/25/24 09:27 Source: patient and RN notes reviewed Mode of arrival: ambulatory Limitations: no limitations History of Present Illness HPI Narrative: 54-year-old female presents to the [facility] complain of urinary symptoms. She reports that she had pain with urination and blood in urine that started yesterday. She has a history of UTIs. She denies any fevers, body aches, chills, abdominal pain. She has a history of multiple sclerosis. Related Data Home Medications ?Medication ?Instructions ?Recorded ?Confirmed ?Last Taken ?Type duloxetine 30 mg capsule,delayed 30 mg PO DAILY 08/29/19 05/03/24 11/13/22 History release fingolimod 0.5 mg capsule (Gilenya) 0.5 mg PO DAILY 08/29/19 05/03/24 08/16/23 History solifenacin 5 mg tablet 5 mg PO DAILY 07/23/20 05/03/24 11/13/22 History temazepam 7.5 mg capsule (Restoril) 7.5 mg PO QHS PRN Insomnia 08/03/21 05/03/24 11/13/22 History cholecalciferol (vitamin D3) 125 125 mcg PO DAILY 08/09/23 05/03/24 Unknown History mcg (5,000 unit) tablet (Vitamin D3) multivitamin 1 tablet PO DAILY 08/09/23 05/03/24 Unknown History Allergies Allergy/AdvReac Type Severity Reaction Status Date / Time No Known Allergies Allergy Verified 06/25/24 08:46 Review of Systems Review of Systems: CONSTITUTIONAL: Denies fever, chills, or sweats. EYES: Denies visual changes, redness, or discharge. ENT: Denies rhinorrhea, congestion, sore throat, or otalgia. CARDIOVASCULAR: Denies chest pain, palpitations, or edema. RESPIRATORY: Denies cough or dyspnea. GASTROINTESTINAL: Denies abdominal pain, nausea, vomiting, or diarrhea. GENITOURINARY: Positive for dysuria and hematuria. SKIN: Denies rash or itching. MUSCULOSKELETAL: Denies back pain, joint pain, or myalgia. NEUROLOGIC: Denies headache, numbness, or weakness. PSYCHIATRIC: Denies anxiety or depression. All other systems reviewed are negative, except as documented in HPI. PMFSH Past Medical History Medical History LGSIL (low grade squamous intraepithelial dysplasia) Weight loss GERD (gastroesophageal reflux disease) Nausea Tenesmus Acute diarrhea Depression Multiple sclerosis Surgical History Surgical History [place] teeth removed Family History Family History Grandparent Cerebrovascular accident Mother Acute myocardial infarction Father Family history of suicide Alcoholism Grandparent Family history of lung cancer Family history of heart disease in male family member before age 55 Diabetes mellitus Cerebrovascular accident Mother Family history of heart disease in male family member before age 55 Heart disease Other Breast cancer Family history of malignant neoplasm of breast Social History Social History Smoking packs per day: 0.5 Smoking cigarettes per day: 10.0 Years smoked: 6 Smoking pack-years: 3.00 Smoking status: Former smoker Tobacco type: cigarettes Second hand tobacco smoke exposure: No Smoking end date: 08/09/19 Alcohol intake: current Drinks per week: 6 Alcohol use details: occassional Substance use: never Substance use type: does not use Lack of Transportation: No Lack of Food: Never True Current Housing: I Have Housing Concerned About Future Housing: No Difficulty Paying Gas/Electric Bills: No Difficulty Paying for Meds: No Currently Unemployed: No Education: Bachelor's Degree Difficulty w/ Childcare or Family Care: No Living arrangements: with family Gender identity (if verbalized by the patient): Female Sexual Orientation (if Verbalized by the Patient): Straight or Heterosexual Spiritual care concerns: No Agree to blood products: Yes Comments At the time of my signature, I reviewed and agree with the nursing past medical, surgical, social, and family history. There is no relevant family history pertinent to the patient complaint. Exam Narrative: GENERAL: This is a well-nourished, well-developed patient, in no apparent distress. She is non ill-appearing, nontoxic appearing HEAD: normocephalic, atraumatic. EYES: Sclera clear/white. Vision is grossly intact. CARDIOVASCULAR: Regular rate and rhythm without murmurs, gallops, or rubs. RESPIRATORY: Clear to auscultation. Breath sounds equal bilaterally. No wheezes, rales, or rhonchi. GASTROINTESTINAL: Abdomen soft, non-tender, nondistended. Bowel sounds are active. No hepato-splenomegaly, or palpable masses. No guarding. SKIN: warm, Dry, intact with no suspicious lesions or rash, good texture and turgor. NEURO: awake, alert, and oriented to person, place and time. There were no obvious focal neurologic abnormalities. BACK: Nontender without deformity. No CVA tenderness. Course Course Level of Care: Express Care Visit Vital Signs Vital signs: Vital Signs Temperature 96.9 F L 06/25/24 08:54 Pulse Rate 78 06/25/24 08:54 Respiratory Rate 16 06/25/24 08:54 Blood Pressure 136/85 06/25/24 08:54 Pulse Oximetry 100 06/25/24 08:54 Temperature 96.9 F L 06/25/24 08:54 Pulse Rate 78 06/25/24 08:54 Respiratory Rate 16 06/25/24 08:54 Blood Pressure 136/85 06/25/24 08:54 Pulse Oximetry 100 06/25/24 08:54 Reviewed MDM - Female Genitourinary MDM Narrative Medical decision making narrative: Urinalysis and symptoms are consistent with a urinary tract infection. Will treat empirically with Bactrim. Previous urine culture showed citrobacter koseri this is susceptible to Bactrim. Will send another urine culture off to assess bacterial growth. Patient is aware she will be contacted if the antibiotic she is on is not effective for the organism the micro on the culture, antibiotics will be changed accordingly for her culture results. Anticipatory guidance given, ED precautions discussed Differential Diagnosis Differential diagnosis: Likely urinary tract infection, bacterial vaginosis and cystitis Lab Data Attestation: I reviewed the patient's lab results. Labs: Lab Results 06/25/24 Range/Units 09:29 POC Urine Color Yellow POC Urine Clarity Clots POC Urine pH 7.0 POC Ur Specif [place] 1.025 POC Urine Protein 3+ (Negative) POC Ur Glucose (UA) Negative (Negative) POC Urine Ketones Negative (Negative) POC Urine Blood 3+ (Negative) POC Urine Nitrite Positive (Negative) POC Urine Bilirubin Negative (Negative) POC Urine Urobilinogen 0.2 POC U Leukocyte Esteras 2+ (Negative) Critical Care Time Critical Care Time Critical Care Time: No Discharge Plan Discharge Clinical Impression: Urinary tract infection Qualifiers: Urinary tract infection type: site unspecified Hematuria presence: with hematuria Qualified Code(s): N39.0 - Urinary tract infection, site not specified Patient Disposition: Home, Self-Care Condition: Stable Instructions: Antibiotic Form, Urinary Tract Infection in Women (ED) Additional Instructions: We will send a urine culture off to the lab; if the culture identifies an organism that the prescribed antibiotic will not treat, you will receive a phone call from an urgent care staff member and an appropriate antibiotic will be prescribed. -Your symptoms should begin to improve within a day of starting antibiotics. But you should finish all the antibiotic pills you get. Otherwise your infection might come back. -Also recommend: drink more fluid. It might help flush out germs, and it does no harm -Tylenol/ibuprofen as needed for pain -Follow-up with your primary care provider for urine recheck OR if your symptoms persist, change or worsen significantly before you can contact your personal physician then please, without delay, go to the emergency department for further evaluation. Patient Language: Bahraini Prescriptions: New sulfamethoxazole-trimethoprim [Bactrim DS] 800-160 mg tablet 1 tablet PO Q12H 5 Days Qty: 10 0RF No Action duloxetine 30 mg capsule,delayed release(DR/EC) 30 mg PO DAILY Gilenya 0.5 mg capsule 0.5 mg PO DAILY solifenacin 5 mg tablet 5 mg PO DAILY temazepam [Restoril] 7.5 mg capsule 7.5 mg PO QHS PRN (Reason: Insomnia) nystatin-triamcinolone 100,000-0.1 unit/gram-% ointment 1 applic topical BID Qty: 30 0RF multivitamin Tablet 1 tablet PO DAILY cholecalciferol (vitamin D3) [Vitamin D3] 125 mcg (5,000 unit) Tablet 125 mcg PO DAILY Follow-up/Referrals: Akshat Monroe MD [Primary Care Provider] - Time of Disposition: 09:41
== END 2024-06-25 09:42 | disposition home or self-care (01) ==
PROVIDERS: PCP Obstetrics & Gynecology
DX: N39.0 Urinary tract infection, site not specified (principal); B96.89 Other specified bacterial agents as the cause of diseases classified elsewhere; G35 Multiple sclerosis; K21.9 Gastro-esophageal reflux disease without esophagitis; Z87.891 Personal history of nicotine dependence
CPT/HCPCS: 81003; 87086; 87186; 99213; G0463

== ENCOUNTER 2024-08-21 15:19 | Emergency (ER) | payer OTHER, SELFPAY ==
[2024-08-21 15:26] VITALS: BP 129/92; PULSE 71; RESP 18; TEMP 36.2; O2SAT 100
[2024-08-21 15:35] LABS: EDUAAPPEAR Cloudy; EDUABILI Negative (Negative); EDUABLOOD 3+ (Negative); EDUACOLOR1 Yellow; EDUAGLUCOSE Negative (Negative); EDUAKETONE Negative (Negative); EDUALEUKO 1+ (Negative); EDUANITRATE Negative (Negative); EDUAPH 6.5; EDUAPROTEIN 2+ (Negative); EDUASPGRAVITY 1.025
--- NOTE | 2024-08-21 15:55 | ED_ITS ---
HPI - Female Genitourinary General Chief complaint: Urogenital-Female Stated complaint: UTI SYMPTOMS Time Seen by Provider: 08/21/24 15:40 Source: patient and RN notes reviewed Mode of arrival: ambulatory Limitations: no limitations History of Present Illness HPI Narrative: 54-year-old female presents [facility] complaining of urinary symptoms for 1 day. Patient reports having dysuria, increased frequency, and increase hesitancy. Patient denies any fevers, abdominal pain, body aches, chills, nausea, vomiting, diarrhea, vaginal bleeding, vaginal discharge. Patient has not taken anything [id number] for symptoms. Patient was treated for a UTI approximately 2 months ago with Bactrim and said her symptoms resolved however she stated the Bactrim did not make her feel good. Patient denies any signi ficant past medical history. Related Data Home Medications ?Medication ?Instructions ?Recorded ?Confirmed ?Last Taken ?Type duloxetine 30 mg capsule,delayed 30 mg PO DAILY 08/29/19 05/03/24 11/13/22 History release fingolimod 0.5 mg capsule (Gilenya) 0.5 mg PO DAILY 08/29/19 05/03/24 08/16/23 History solifenacin 5 mg tablet 5 mg PO DAILY 07/23/20 05/03/24 11/13/22 History temazepam 7.5 mg capsule (Restoril) 7.5 mg PO QHS PRN Insomnia 08/03/21 05/03/24 11/13/22 History cholecalciferol (vitamin D3) 125 125 mcg PO DAILY 08/09/23 05/03/24 Unknown History mcg (5,000 unit) tablet (Vitamin D3) multivitamin 1 tablet PO DAILY 08/09/23 05/03/24 Unknown History Allergies Allergy/AdvReac Type Severity Reaction Status Date / Time No Known Allergies Allergy Verified 08/21/24 15:29 Review of Systems Review of Systems: CONSTITUTIONAL: Denies fever, chills, body aches, or sweats. EYES: Denies visual changes, redness, or discharge. ENT: Denies rhinorrhea, congestion, sore throat, or otalgia. CARDIOVASCULAR: Denies chest pain, palpitations, or edema. RESPIRATORY: Denies cough or dyspnea. GASTROINTESTINAL: Denies abdominal pain, nausea, vomiting, or diarrhea. GENITOURINARY: Positive for dysuria, increased frequency. Negative for hematuria, vaginal bleeding, vaginal discharge. SKIN: Denies rash or itching. MUSCULOSKELETAL: Denies back pain, joint pain, or myalgia. NEUROLOGIC: Denies headache, numbness, or weakness. PSYCHIATRIC: Denies anxiety or depression. All other systems reviewed are negative, except as documented in HPI. [facility] Past Medical History Medical History LGSIL (low grade squamous intraepithelial dysplasia) Weight loss GERD (gastroesophageal reflux disease) Nausea Tenesmus Acute diarrhea Depression Multiple sclerosis Surgical History Surgical History [place] teeth removed Family History Family History Grandparent Cerebrovascular accident Mother Acute myocardial infarction Father Family history of suicide Alcoholism Grandparent Family history of lung cancer Family history of heart disease in male family member before age 55 Diabetes mellitus Cerebrovascular accident Mother Family history of heart disease in male family member before age 55 Heart disease Other Breast cancer Family history of malignant neoplasm of breast Social History Social History Smoking packs per day: 0.5 Smoking cigarettes per day: 10.0 Years smoked: 6 Smoking pack-years: 3.00 Smoking status: Former smoker Tobacco type: cigarettes Second hand tobacco smoke exposure: No Smoking end date: 08/09/19 Alcohol intake: current Drinks per week: 6 Alcohol use details: occassional Substance use: never Substance use type: does not use Lack of Transportation: No Lack of Food: Never True Current Housing: I Have Housing Concerned About Future Housing: No Difficulty Paying Gas/Electric Bills: No Difficulty Paying for Meds: No Currently Unemployed: No Education: Bachelor's Degree Difficulty w/ Childcare or Family Care: No Living arrangements: with family Gender identity (if verbalized by the patient): Female Sexual Orientation (if Verbalized by the Patient): Straight or Heterosexual Spiritual care concerns: No Agree to blood products: Yes Comments At the time of my signature, I reviewed and agree with the nursing past medical, surgical, social, and family history. There is no relevant family history pertinent to the patient complaint. Exam Narrative: GENERAL: This is a well-nourished, well-developed adult, in no apparent distress. They are non ill-appearing, nontoxic appearing. HEAD: normocephalic, atraumatic. EYES: Sclera clear/white. Vision is grossly intact. Conjunctiva normal bilaterally. Extraocular movements intact. EARS: External ears normal,Hearing grossly intact. NOSE: External nose normal THROAT: Mucous membranes moist NECK: Normal range of motion CARDIOVASCULAR: Regular rate and rhythm. Normal S1-S2. No click, gallops, rubs, or murmurs. RESPIRATORY: Respiratory rate normal, respiratory effort nonlabored, no respiratory distress. Lungs are clear auscultation throughout. No adventitious lung sounds GASTROINTESTINAL: Abdomen soft, flat, non-tender, nondistended. Bowel sounds are active. No hepato-splenomegaly, or palpable masses. No guarding. No rebound tenderness. SKIN: warm, Dry, intact with no suspicious lesions or rash, good texture and turgor. NEURO: awake, alert, and oriented to person, place and time. There were no obvious focal neurologic abnormalities. EXTREMITIES: No joint tenderness, effusion, or edema noted. BACK: Nontender without deformity. No CVA tenderness. Course Course Emergency Course: Portions of this record may have been created with voice recognition software Level of Care: Express Care Visit Vital Signs Vital signs: Vital Signs Temperature 97.2 F L 08/21/24 15: Pulse Rate 71 08/21/24 15:26 Respiratory Rate 18 08/21/24 15:26 Blood Pressure 129/92 H 08/21/24 15:26 Pulse Oximetry 100 08/21/24 15:26 Oxygen Delivery Room Air 08/21/24 15:26 Temperature 97.2 F L 08/21/24 15:26 Pulse Rate 71 08/21/24 15:26 Respiratory Rate 18 08/21/24 15:26 Blood Pressure 129/92 H 08/21/24 15:26 Pulse Oximetry 100 08/21/24 15:26 Oxygen Delivery Room Air 08/21/24 15:26 MDM - Female Genitourinary MDM Narrative Medical decision making narrative: Urine dipstick positive for evidence of UTI with leukocytes, protein and blood. Urine culture pending. Symptoms are consistent with UTI. Three previous urine cultures have showed Citrobacter koseri. Patient does not want to use Bactrim again. Will treat with Augmentin since it shows that is susceptible to the organism. Discussed physical exam findings. Advised supportive measures and signs/symptoms to go to the ER. Pt is appropriate for outpt treatment and f/u. Differential Diagnosis Differential diagnosis: Likely urinary tract infection, cystitis and other (Pyelonephritis) Lab Data Attestation: I reviewed the patient's lab results. Labs: Lab Results 08/21/24 Range/Units 15:33 POC Urine Color Yellow POC Urine Clarity Cloudy POC Urine pH 6.5 POC Ur Specif [place] 1.025 POC Urine Protein 2+ (Negative) POC Ur Glucose (UA) Negative (Negative) POC Urine Ketones Negative (Negative) POC Urine Blood 3+ (Negative) POC Urine Nitrite Negative (Negative) POC Urine Bilirubin Negative (Negative) POC Urine Urobilinogen 1.0 POC U Leukocyte Esteras 1+ (Negative) Discharge Plan Discharge Clinical Impression: Urinary tract infection Patient Disposition: Home Condition: Stable Instructions: Antibiotic Form, Urinary Tract Infection in Women (ED) Additional Instructions: Take the antibiotic as prescribed The urine will be sent of for a culture to identify what type of bacteria is causing your infection. If the culture shows that the antibiotic will not get rid of your infection, you will be notified and a new antibiotic will be called in for you. Increase water intake you will need to follow up with your PCP 3-5 days. Go to the ER for any worsening symptoms, abdominal pain, fevers, nausea, vomiting, or any other concerns Patient Language: [place] Prescriptions: New amoxicillin-pot clavulanate 875-125 mg tablet 1 tablet PO Q12H 7 Days Qty: 14 0RF No Action duloxetine 30 mg capsule,delayed release(DR/EC) 30 mg PO DAILY Gilenya 0.5 mg capsule 0.5 mg PO DAILY solifenacin 5 mg tablet 5 mg PO DAILY temazepam [Restoril] 7.5 mg capsule 7.5 mg PO QHS PRN (Reason: Insomnia) multivitamin Tablet 1 tablet PO DAILY cholecalciferol (vitamin D3) [Vitamin D3] 125 mcg (5,000 unit) Tablet 125 mcg PO DAILY Follow-up/Referrals: UNKNOWN,DOCTOR [Primary Care Provider] - Time of Disposition: 15:46
== END 2024-08-21 15:51 | disposition home or self-care (01) ==
DX: N39.0 Urinary tract infection, site not specified (principal); Z87.891 Personal history of nicotine dependence; K21.9 Gastro-esophageal reflux disease without esophagitis; G35 Multiple sclerosis
CPT/HCPCS: 81003; 87077; 87086; 87186; 99213; G0463

== ENCOUNTER 2024-10-28 09:20 | Emergency (ER) | payer OTHER, SELFPAY ==
[2024-10-28 09:36] VITALS: BP 126/68; PULSE 74; RESP 18; TEMP 36.5; O2SAT 100
[2024-10-28 09:52] LABS: EDUAAPPEAR Cloudy; EDUABILI Negative (Negative); EDUABLOOD 2+ (Negative); EDUACOLOR1 Yellow; EDUAGLUCOSE Negative (Negative); EDUAKETONE Negative (Negative); EDUALEUKO 1+ (Negative); EDUANITRATE Negative (Negative); EDUAPH 7.0; EDUAPROTEIN Negative (Negative); EDUASPGRAVITY 1.015; EDUAUROBILI 0.2
--- NOTE | 2024-10-28 09:58 | ED_ITS ---
HPI - Female Genitourinary General Chief complaint: Urogenital-Female Stated complaint: Uti Symptoms Time Seen by Provider: 10/28/24 09:59 Source: patient, RN notes reviewed and old records reviewed Mode of arrival: ambulatory Limitations: no limitations History of Present Illness HPI Narrative: 54-year-old female presents to the [facility] with urinary symptoms. Patient reports last night started with some urgency and burning with urination, urgency has stopped, burning continues Has been drinking water Patient has had a UTI in July of 2024, June of 2024, November of 2023 Onset (ago): day(s) (1) Related Data Home Medications ?Medication ?Instructions ?Recorded ?Confirmed ?Last Taken ?Type duloxetine 30 mg capsule,delayed 30 mg PO DAILY 08/29/19 05/03/24 11/13/22 History release fingolimod 0.5 mg capsule (Gilenya) 0.5 mg PO DAILY 08/29/19 05/03/24 08/16/23 History solifenacin 5 mg tablet 5 mg PO DAILY 07/23/20 05/03/24 11/13/22 History temazepam 7.5 mg capsule (Restoril) 7.5 mg PO QHS PRN Insomnia 08/03/21 05/03/24 11/13/22 History cholecalciferol (vitamin D3) 125 125 mcg PO DAILY 08/09/23 05/03/24 Unknown History mcg (5,000 unit) tablet (Vitamin D3) multivitamin 1 tablet PO DAILY 08/09/23 05/03/24 Unknown History Allergies Allergy/AdvReac Type Severity Reaction Status Date / Time No Known Allergies Allergy Verified 10/28/24 09:28 Review of Systems Review of Systems: All systems reviewed & are unremarkable except as noted in HPI and below Constitutional: Constitutional: Reports no additional constitutional complaints Respiratory: Respiratory: Reports no additional respiratory complaints, Denies chest congestion, Denies cough and Denies dyspnea Gastrointestinal: Gastrointestinal: Reports no additional gastrointestinal complaints Genitourinary: Genitourinary: Reports as per HPI Musculoskeletal: Musculoskeletal: Reports no additional musculoskeletal complaints Integumentary/Breasts: Skin/Breast: Reports system reviewed and no additional complaints, except as docu [facility] Past Medical History Medical History LGSIL (low grade squamous intraepithelial dysplasia) Weight loss GERD (gastroesophageal reflux disease) Nausea Tenesmus Acute diarrhea Depression Multiple sclerosis Surgical History Surgical History [place] teeth removed Family History Family History Grandparent Cerebrovascular accident Mother Acute myocardial infarction Father Family history of suicide Alcoholism Grandparent Family history of lung cancer Family history of heart disease in male family member before age 55 Diabetes mellitus Cerebrovascular accident Mother Family history of heart disease in male family member before age 55 Heart disease Other Breast cancer Family history of malignant neoplasm of breast Social History Social History Smoking packs per day: 0.5 Smoking cigarettes per day: 10.0 Years smoked: 6 Smoking pack-years: 3.00 Smoking status: Former smoker Tobacco type: cigarettes Second hand tobacco smoke exposure: No Smoking end date: 08/09/19 Alcohol intake: current Drinks per week: 6 Alcohol use details: occassional Substance use: never Substance use type: does not use Lack of Transportation: No Lack of Food: Never True Current Housing: I Have Housing Concerned About Future Housing: No Difficulty Paying Gas/Electric Bills: No Difficulty Paying for Meds: No Currently Unemployed: No Education: Bachelor's Degree Difficulty w/ Childcare or Family Care: No Living arrangements: with family Gender identity (if verbalized by the patient): Female Sexual Orientation (if Verbalized by the Patient): Straight or Heterosexual Spiritual care concerns: No Agree to blood products: Yes Comments At the time of my signature, I reviewed and agree with the nursing past medical, surgical, social, and family history. There is no relevant family history pertinent to the patient complaint. Exam Const: General: cooperative, healthy appearing, comfortable, no acute distress, well developed, alert and well nourished Nutritional Appearance: well nourished Orientation/consciousness: patient oriented x3 Limitations: no limitations HENMT: Head: normal to inspection Mouth: Yes Normal oral and palatal mucosa present, Yes lip normal, Yes tongue normal and Yes moist mucous membranes Eyes: General: appearance normal, both eyes and all related structures Alignment and Position: alignment normal Neck: Neck: normal visual inspection, full ROM, no lymphadenopathy and no meningeal signs Chest: Chest palpation & inspection: normal inspection of the chest Resp: Effort & Inspection: normal respiratory effort and able to speak in complete sentences Auscultation: clear to auscultation bilaterally, no crackles, no rales, no rhonchi and no wheezes Cardio: Rate: regular rate GI: GI Palp: No abdominal tenderness : General: Yes no CVA tenderness Skin: General skin exam: normal color and no rashes or lesions noted Neuro: General: patient oriented x3, gait normal, moves all extremities and no meningeal signs Cognition (Neuro): normal cognition Speech: normal speech Gait exam (Neuro): Normal gait present Extrem: General: normal to inspection, full ROM, capillary refill normal and normal gait Psych: Appearance: grossly normal and well kempt Mental Status: mental status grossly normal Speech and movement: Normal speech and movement present and Clear speech present Affect: normal affect Attitude: cooperative Course Course Level of Care: Express Care Visit Vital Signs Vital signs: Vital Signs Temperature 97.7 F 10/28/24 09:36 Pulse Rate 74 10/28/24 09:36 Respiratory Rate 18 10/28/24 09:36 Blood Pressure 126/68 10/28/24 09:36 Pulse Oximetry 100 10/28/24 09:36 Oxygen Delivery Room Air 10/28/24 09:36 Temperature 97.7 F 10/28/24 09:36 Pulse Rate 74 10/28/24 09:36 Respiratory Rate 18 10/28/24 09:36 Blood Pressure 126/68 10/28/24 09:36 Pulse Oximetry 100 10/28/24 09:36 Oxygen Delivery Room Air 10/28/24 09:36 Reviewed MDM - Female Genitourinary MDM Narrative Medical decision making narrative: Patient sitting in exam. Patient is nontoxic, vitals are stable. Patient presents with urinary urgency and burning. Patient with positive blood, positive leukocytes. History of UTIs, reviewed previous cultures Discussed with patient at the importance of following up with primary or Urology due to frequency of UTIs, discussed antibiotic resistance. Patient appropriate for outpatient treatment with close follow-up, prescribing Augmentin Discharge instructions reviewed with patient, as well as provided in writing per nursing staff. The instructions also include specific and strict return/GO TO THE ER as well as f/u information. All questions have been answered, and the patient deny any further questions with discharge and discharge plan. Some parts of this dictation were generated by voice recognition software and may contain typographical and/or grammatical inaccuracies. Differential Diagnosis Differential diagnosis: Likely urinary tract infection, bacterial vaginosis and cystitis Lab Data Labs: Lab Results 10/28/24 Range/Units 09:50 POC Urine Color Yellow POC Urine Clarity Cloudy POC Urine pH 7.0 POC Ur Specif [place] 1.015 POC Urine Protein Negative (Negative) POC Ur Glucose (UA) Negative (Negative) POC Urine Ketones Negative (Negative) POC Urine Blood 2+ (Negative) POC Urine Nitrite Negative (Negative) POC Urine Bilirubin Negative (Negative) POC Urine Urobilinogen 0.2 POC U Leukocyte Esteras 1+ (Negative) Reviewed Critical Care Time Critical Care Time Critical Care Time: No Discharge Plan Discharge Clinical Impression: Urinary tract infection Qualifiers: Urinary tract infection type: acute cystitis Hematuria presence: with hematuria Qualified Code(s): N30.01 - Acute cystitis with hematuria Patient Disposition: Home Condition: Stable Instructions: Antibiotic Form, Urinary Tract Infection in Women (ED) Additional Instructions: Increased water intake Take Tylenol as needed for pain Take antibiotic as prescribed Today your urine dip showed a probability of a UTI. You have been prescribed an antibiotic. Your urine will be sent to our lab for a culture. If at that time a bacteria grows that is not covered by the antibiotic prescribed you will be notified. Follow-up with primary care within 2 weeks. Having 4 UTIs within 1 year it is highly recommended you follow-up either with your primary care provider or a urologist for further evaluation. For new or worsening symptoms go directly to the emergency room Patient Language: Grenadian Prescriptions: New amoxicillin-pot clavulanate 875-125 mg tablet 1 tablet PO Q12H Qty: 10 0RF No Action duloxetine 30 mg capsule,delayed release(DR/EC) 30 mg PO DAILY Gilenya 0.5 mg capsule 0.5 mg PO DAILY solifenacin 5 mg tablet 5 mg PO DAILY temazepam [Restoril] 7.5 mg capsule 7.5 mg PO QHS PRN (Reason: Insomnia) multivitamin Tablet 1 tablet PO DAILY cholecalciferol (vitamin D3) [Vitamin D3] 125 mcg (5,000 unit) Tablet 125 mcg PO DAILY Follow-up/Referrals: Swapnil Munoz MD [Physician] - 1 Week (express care follow up ) PHYSICIAN,HOUSE[employer]ER [Primary Care Provider] - Stand Alone Forms: Work/School Release IP Time of Disposition: 10:13
== END 2024-10-28 10:16 | disposition home or self-care (01) ==
PROVIDERS: Emergency Provider Nurse Practitioner
DX: N30.01 Acute cystitis with hematuria (principal); Z87.891 Personal history of nicotine dependence; G35 Multiple sclerosis; K21.9 Gastro-esophageal reflux disease without esophagitis
CPT/HCPCS: 81003; 87086; 99213; G0463